=== PATIENT | male | born 1945 | race Caucasian/White ===

== ENCOUNTER → 2021-03-04 | Outpatient (CLI) | payer MEDICARE, BC ==
[~2021-03-04] MED LIST: ACEROLA C500 M2 PO; ALPHA LIPOIC A100 MG PO; ASA81BEC PO; CHILDREN'S ZYRT10 M1 PO; CULTURELLE1 EACH PO; JARDIANCE10 MG PO; LIPITOR40 MG PO; LISINOPRIL20 MG PO; LOPRESSOR50 MG PO; METFORMIN HCL500 M3 PO; NEURONTIN300 MG PO; NITROSTAT0.4 M1 SUBLING; SUPER THERAVIT1 EACH PO; cholecalciferol PO
--- NOTE | 2021-03-04 11:14 | CARDNUC ---
[place] [address] CARDIAC NUCLEAR IMAGING REPORT Name: JORDANA LEWIS Room: [facility]#: [id number] Admission: 03/04/21 Attend Phys: Naren Shabazz, Discharge: Date of : 45 Date of Service: 03/04/21 1114 Report #: [id number] THIS REPORT FOR: cc: Vinnie Meade MD, Stephen R. MD Biggs, F. Douglas MD [facility] ~ APPROVED REPORT Imaging Protocol: Rest Tc-99m/Stress Tc-99m 1 day Study performed: 03/04/2021 07:15:00 Indication: Dyspnea, CAD s/p PCI. Patient Location: In-Patient Stress Tech: Elijah Gross Stress Nurse: Maryjo Beal RN NM Tech:ALISA Smith Ht: 6 ft 0 in Wt: 195 lbs BSA: 2.11 m2 BMI: 26.44 Medical History Medical History: CAD s/p stent, Carotid artery disease, CKD, COPD, Diabetic Noninsulin, Former Smoker, HTN, Hyperlipidemia, SOB, FHX CAD, Knee pain, hip pain. Medications: ASA 81 Mg, Atorvastatin, Lisinopril, Metoprolol, NTG, Metformin. Allergies: Codeine Cardiac Risk Factors: Age, Diabetes (non-insulin), FHX of CAD, HTN, Hyperlipidemia, SOB, Past Smoker, Bilateral Carotid plaquing. Previous Cardiac Procedures: PCI Pretest Chest Pain Characteristics: No chest pain Exercise History: Indeterminate Physical Disabilities: Hips, Knees. Meds Held (24 hrs): Lisinopril, Metoprolol, NTG. Resting Data Rest SPECT myocardial perfusion imaging was performed in supine position 30 minutes following the intravenous injection of 10.3 mCi of Tc-99m Sestamibi. Time of rest injection: 744 Date: 03/04/2021 The images were gated to evaluate regional wall motion and calculate left ventricular ejection fraction. Administration Route: [place] [address] CARDIAC NUCLEAR IMAGING REPORT Name: JORDANA LEWIS [id number] Admission: 03/04/21 Attend Phys: Naren Shabazz, Discharge: Date of : 45 Date of Service: 03/04/21 1114 Report #: [id number] Administration Site: Right Hand Pharmacologic Stress Pharmacologic stress test was performed by injecting Regadenoson 0.4 mg IV push over 10-15 seconds immediately followed by the intravenous injection of 35.0 mCi of Tc-99m Sestamibi. Time of stress injection: 919 Date: 03/04/2021 Administration Route: IV Administration Site: Right Hand Gated Stress SPECT was performed 40 minutes after stress injection. The images were gated to evaluate regional wall motion and calculate left ventricular ejection fraction. Prone imaging was performed. Stress Test Details Stress Test: Pharmacologic stress testing performed using 0.4 mg of regadenoson per 5 mL given IV over 10 seconds. Reason for pharmacologic stress test: Hips, Knees.. HR Max Heart Rate (APMHR): 145 bpm Resting HR: 61 bpm Target HR (85% APMHR): 123 bpm Max HR Achieved: 88 bpm % of APMHR: 60 Recovery HR: 71 bpm HR response to stress: Normal HR response to stress BP Resting BP: 148/69 mmHg Max BP: 149/69 mmHg Recovery BP: 137/69 mmHg BP response to stress: Normal blood pressure response to stress. ECG Resting ECG: Sinus Rhythm, normal EKG Stress ECG: Sinus Rhythm, normal EKG ST Change: None Arrhythmia: VPC Recovery ECG: Sinus Rhythm, normal EKG Recovery ST Change: None Recovery Arrhythmia: None Clinical Reason for Termination: Completed protocol Stress Symptoms: Nausea Exercise duration: 00 min 00 [place] [address] CARDIAC NUCLEAR IMAGING REPORT Name: OZZYSUNDEEPCLINTONJORDANAENID HOBBS Room: [facility]#: [id number] Admission: 03/04/21 Attend Phys: Naren Shabazz, Discharge: Date of : 45 Date of Service: 03/04/21 1114 Report #: [id number] Exercise capacity: 1.00 METs Nurse Comments A 75 year old male tolerated a sitting Lexiscan. Patient was stable and stated he felt good when escorted to nuclear medicine for imaging. Stress ECG Conclusion Normal hemodynamic response to pharmacologic stress. Non-diagnostic pharmacologic stress EKG due to failure to attain target HR. Clinical: Non-ischemic Study Quality Study: Good Artifact: Mild Diaphragmatic artifact Lung Uptake: Normal Study Data At rest, the left ventricular ejection fraction was 69%.. Post stress, the left ventricular ejection was 70%.. SSS: 1 SRS: 5 SDS: -4 TID = 0.83. Perfusion The resting study demonstrated a small mild inferior defect near the base. There is also a small mild septal defect near the base. The post stress images also demonstrate a small mild inferior defect near the base and a small mild septal defect near the base. Prone images were normal. There was no reversible defect and no evidence of myocardial ischemia. Images were reviewed using [employer]. Wall Motion Normal left ventricular wall motion. Nuclear Conclusion ECG Findings: non-diagnostic Clinical Findings: negative for ischemia Nuclear Findings: negative for ischemia Exercise Capacity: not assessed Left Ventricular Function: normal Risk Study: [place] [address] CARDIAC NUCLEAR IMAGING REPORT Name: JORDANA LEWIS ANJEL Room: [facility]#: [id number] Admission: 03/04/21 Attend Phys: Naren Shabazz, Discharge: Date of : 45 Date of Service: 03/04/21 1114 Report #: [id number] Normal study. No scintigraphic evidence for myocardial ischemia or scar. <Conclusion> Normal hemodynamic response to pharmacologic stress. Non-diagnostic pharmacologic stress EKG due to failure to attain target HR. Clinical: Non-ischemic <ELECTRONICALLY SIGNED> By: Sera Booker MD, [facility] 03/04/21 1114 1114 1114 Sera Booker MD, FACC /INF
== END ==
LOC: M.NUC 02-11 16:13 → M.CRD 02-21 13:00 → M.NUC 07:21
PROVIDERS: ATTEND Internal Medicine Cardiovascular Disease
DX: I25.10 Atherosclerotic heart disease of native coronary artery without angina pectoris (principal)